=== PATIENT | female | born 1930 | race Caucasian/White ===

== ENCOUNTER 2016-05-12 19:07 | Emergency (ER) | payer OTHER ==
[2016-05-12 19:16] VITALS: BP 168/89; BMI 24.2
--- NOTE | 2016-05-12 19:19 | DR.GENAD ---
HPI - PCP Primary Care Physician: HASSAN - Complaint/Symptoms Chief Complaint Doctors Comments: Patient with dementia, alzheimer disease. No history of vomiting or LOC. Chief Complaint:: FELL OUT OF W/C HIT FORHEAD, NO LOC, SMALL HEMATOMA NOTED TO FORHEAD. - Source History Provided: Longterm - Mode of Arrival Mode of Arrival: Stretcher - Timing Onset of Chief Complaint: 05/12/16 PMH - PMH Past Medical History: Yes Past Medical History: Alzheimers, Anemia, COPD, Coronary Artery Disease, Dementia, GERD, Hypertension, Hypothyroidism Past Surgical History: Yes Surgical History: Hysterectomy, Ortho Surgery - Family History History of Family Medical Conditions: No - Social History Does patient currently use any type of tobacco product: No Have you used tobacco products in the last 12 months: No Type of Tobacco Use: None Does any household member use tobacco: No Alcohol Use: None Do you use any recreational Drugs:: No Lives With: Other Lives Where: Longterm - infectious screening In the last 2 months have you had wt loss of >10#?: NO Have you had fever, night sweats or hemotysis?: No Have you traveled outside the country in the last 6 months?: No Isolation: Standard ROS - Review of Systems Constitutional: No Symptoms Reported Eyes: No Symptoms Reported ENTM: No Symptoms Reported Respiratoy: No Symptoms Reported Cardiovascular: No Symptoms Reported Gastrointestinal/Abdominal: No Symptoms Reported Genitourinary: No Symptoms Reported Neurological: No Symptoms Reported, Headache Musculoskeletal: Other (forehead) Integumentary: No Symptoms Reported Hematologic/Lymphatic: No Symptoms Reported Endocrine: No Symptoms Reported Psychiatric: No Symptoms Reported All Other Systems: Reviewed and Negative PE - Vital Signs Vitals: Temperature 97.7 F Pulse Rate 84 Respiratory Rate 16 Blood Pressure 168/89 O2 Sat by Pulse Oximetry 97 - General Limitations: No Limitations General Appearance: Alert, In No Apparent Distress - Head Head Exam: Normal Inspection, Other (hematgoma forehead) - Eyes Eye exam: Normal Appearance, PERRL, EOMI - ENT ENT Exam: Normal Exam External Ear Exam: Normal External Inspection TM/Canal Exam: Bilateral Normal Nose Exam: Normal Nose Exam Mouth Exam: Normal Inspection Throat Exam: Normal Inspection - Neck Neck Exam: Normal Inspection - Chest Chest Inspection: Normal Inspection - Respiratory Respiratory Exam: Normal Lung Sounds Bilat Respiratory Exam: Bilateral Clear to Auscultation - Cardiovascular Cardiovascular Exam: Regular Rate - Abdominal Exam Abdominal Exam: Normal Inspection Abdominal Tenderness: negative: RUQ, RLQ, LUQ, LLQ, Epigastrium, Suprapubic, Diffuse, Mild, Moderate, Severe, Other - Extremities Extremities Exam: Normal Inspection - Back Back Exam: Normal Inspection, Full ROM - Neurologic Neurological Exam: Other (Dementia) - Psychiatric Psychiatric Exam: Normal Affect - Skin Skin Exam: Warm, Dry, Intact Course - Reevaluation 1st: Unchanged ROR - XRAY XRAY Interpreted by: Radiologist (CT Brain:No intracranial hemorrhage, mass effect, midline shift, or extra-axial fluid collection is identified. There is mild diffuse cerebral volume loss. In addition, moderate hypodensity of the periventricular and posterior subcortical white matter is present. Otherwise, the brain parenchyma and CSF containing spaces demonstrate normal density and configuration. There is mild superficial soft tissue swelling overlying the right anterior frontal bone. There is no underlying fracture, and the remainder of the imaged skeleton is unremarkable. No abnormality of the imaged orbital contents, paranasal sinuses, or mastoid air cells is identified. Impression: Mild right frontal superficial hematoma,without acute intracranial or skeletal abnormality. Chronic findings of mild diffuse cerebral volume loss and moderate white matter mivcovascular ischemic change.) - Diagnosis Discharge Problem: Superficial hematoma - Discharge Plan Condition: Stable - Follow ups/Referrals Follow ups/Referrals: LYNNE HASSAN [Primary Care Provider] - 3 days - Instructions
--- NOTE | 2016-05-12 19:53 | CT ---
Head CT without contrast: Indication: Head trauma status post fall, forehead hematoma. Dementia. Comparison: None available. Technique: Helical CT imaging of the head was performed without the use of contrast. Continuous kathleen sverse reconstructions as well as multiplanar reformations were provided. Findings: No intracranial hemorrhage, mass effect, midline shift, or extra-axial fluid collection is identified. There is mild diffuse cerebral volume loss. In addition, moderate hypodensity of the pe riventricular and posterior subcortical white matter is present. Otherwise, the brain parenchyma and CSF containing spaces demonstrate normal density and configuration. There is mild superficial soft tissue swelling overlying the right anterior frontal bone. There is n o underlying fracture, and the remainder of the imaged skeleton is unremarkable. No abnormality of t he imaged orbital contents, paranasal sinuses, or mastoid air cells is identified. Impression: 1. Mild right frontal superficial hematoma, without acute intracranial or skeletal abnormality. 2. Chronic findings of mild diffuse cerebral volume loss and moderate white matter microvascular isc hemic change. Reported By:
== END 2016-05-12 20:10 | disposition home or self-care (01) ==
LOC: ER 19:20
DX: S00.83XA Contusion of other part of head, initial encounter (principal); W01.198A Fall on same level from slipping, tripping and stumbling with subsequent striking against other object, initial encounter; Y92.9 Unspecified place or not applicable
CPT/HCPCS: 70450; 99282